=== PATIENT | male | born 1995 | race Hispanic/Latino ===

== ENCOUNTER 2018-09-02 21:43 | Emergency (ER) | payer OTHER ==
[2018-09-02 23:40] LABS: Barbiturates NEGATIVE (NEGATIVE); Benzodiazepines NEGATIVE (NEGATIVE); Cocaine NEGATIVE (NEGATIVE); METHAMPHETAM NEGATIVE (NEGATIVE); Methadone NEGATIVE (NEGATIVE); Opiates NEGATIVE (NEGATIVE); Phencyclidine NEGATIVE (NEGATIVE); THC Cannibis NEGATIVE (NEGATIVE)
--- NOTE | 2018-09-03 00:19 | EDPHYS ---
Physician Documentation [facility] [place] Name: Edgar Peterson Age: 22 yrs Sex: Male : 1995 Arrival Date: 09/02/2018 Time: 21:49 Bed 15 Private MD: ED Physician Carlos A Avina HPI: 09/03 02:03 This 22 yrs old Male presents to ER via Ambulatory with complaints of snw dehydration, General Weakness, Dizziness. 02:03 Onset: The symptoms/episode began/occurred suddenly, yesterday. Associated signs and snw symptoms: Pertinent positives: dizziness, nausea. Modifying factors: The patient symptoms are alleviated by nothing. It is unknown whether or not the patient has had similar symptoms in the past. It is unknown whether or not the patient has recently seen a physician. Historical: - Allergies: 09/02 22:06 No Known Allergies; tl2 - Home Meds: 22:06 None [Active]; tl2 - PMHx: 22:06 None; tl2 - PSHx: 22:06 None; tl2 - Immunization history:: Adult Immunizations up to date. - Social history:: Smoking status: Patient/guardian denies using tobacco. - Ebola Screening: : No symptoms or risks identified at this time. ROS: 09/03 02:03 Constitutional: Negative for fever, chills, and weight loss, Pt states he feels snw dehydrated, has been getting dizzy at work in the heat. Trying to drink lots of fluids but then feels nauseated Eyes: Negative for injury, pain, redness, and discharge, ENT: Negative for injury, pain, and discharge, Neck: Negative for injury, pain, and swelling, Cardiovascular: Negative for chest pain, palpitations, and edema, Respiratory: Negative for shortness of breath, cough, wheezing, and pleuritic chest pain, Abdomen/GI: Negative for abdominal pain, nausea, vomiting, diarrhea, and constipation, Back: Negative for injury and pain, : Negative for injury, bleeding, discharge, and swelling, MS/Extremity: Negative for injury and deformity, Skin: Negative for injury, rash, and discoloration, Neuro: Negative for headache, weakness, numbness, tingling, and seizure. Exam: 02:03 Constitutional: This is a well developed, well nourished patient who is awake, alert, snw and in no acute distress. Head/Face: Normocephalic, atraumatic. Eyes: Pupils equal round and reactive to light, extra-ocular motions intact. Lids and lashes normal. Conjunctiva and sclera are non-icteric and not injected. Cornea within normal limits. Periorbital areas with no swelling, redness, or edema. ENT: Nares patent. No nasal discharge, no septal abnormalities noted. Tympanic membranes are normal and external auditory canals are clear. Oropharynx with no redness, swelling, or masses, exudates, or evidence of obstruction, uvula midline. Mucous membranes moist. Neck: Trachea midline, no thyromegaly or masses palpated, and no cervical lymphadenopathy. Supple, full range of motion without nuchal rigidity, or vertebral point tenderness. No Meningismus. Chest/axilla: Normal chest wall appearance and motion. Nontender with no deformity. No lesions are appreciated. Cardiovascular: Regular rate and rhythm with a normal S1 and S2. No gallops, murmurs, or rubs. Normal PMI, no JVD. No pulse deficits. Respiratory: Lungs have equal breath sounds bilaterally, clear to auscultation and percussion. No rales, rhonchi or wheezes noted. No increased work of breathing, no retractions or nasal flaring. Abdomen/GI: Soft, non-tender, with normal bowel sounds. No distension or tympany. No guarding or rebound. No evidence of tenderness throughout. Back: No spinal tenderness. No costovertebral tenderness. Full range of motion. Skin: Warm, dry with normal turgor. Normal color with no rashes, no lesions, and no evidence of cellulitis. MS/ Extremity: Pulses equal, no cyanosis. Neurovascular intact. Full, normal range of motion. Neuro: Awake and alert, GCS 15, oriented to person, place, time, and situation. Cranial nerves II-XII grossly intact. Motor strength 5/5 in all extremities. Sensory grossly intact. Cerebellar exam normal. Normal gait. Psych: Awake, alert, with orientation to person, place and time. Behavior, mood, and affect are within normal limits. Vital Signs: 09/02 22:06 BP 142 / 68; Pulse 65; Resp 18; Temp 98.3(O); Pulse Ox 99% on R/A; Weight 79.38 kg; tl2 Height 6 ft. 0 in. (182.88 cm); Pain 0/10; 23:05 BP 133 / 65 Supine; Pulse 62; ea 23:06 BP 136 / 69 Sitting; Pulse 58; ea 23:07 BP 134 / 79 Standing; Pulse 62; ea 09/03 00:30 BP 119 / 57; Pulse 63; Resp 18; Temp 98.2; Pulse Ox 99% on R/A; ea 09/02 22:06 Body Mass Index 23.73 (79.38 kg, 182.88 cm) tl2 MDM: 09/02 22:51 Patient medically screened. snw 09/03 02:07 Data reviewed: vital signs, nurses notes. Data interpreted: Pulse oximetry: on room air snw is 99 %. Interpretation: normal. Counseling: I had a detailed discussion with the patient and/or guardian regarding: the historical points, exam findings, and any diagnostic results supporting the discharge/admit diagnosis, lab results, the need for outpatient follow up, for definitive care, to return to the emergency department if symptoms worsen or persist or if there are any questions or concerns that arise at home. Special discussion: Based on the history and exam findings, there is no indication for further emergent testing or inpatient evaluation. I discussed with the patient/guardian the need to see the primary care provider for further evaluation of the symptoms. 02:07 ED course: pt without ketonuria, no tachycardia. w 09/02 21:55 Order name: Urine Drug Screen; Complete Time: 23:41 snw 09/02 21:55 Order name: Urine Microscopic Only; Complete Time: 00:34 snw 09/02 21:55 Order name: Orthostatic Blood Pressure; Complete Time: 23:12 snw 09/02 21:55 Order name: Urine Dipstick-Ancillary (obtain specimen); Complete Time: 23:12 snw 09/02 23:07 Order name: Urine Dipstick--Ancillary (enter results) cm6 Administered Medications: No medications were administered Disposition: 06:54 Co-signature as Attending Physician, Carlos A Avina MD Available for consultation at ps1 all times . Disposition: 09/03/18 00:18 Discharged to Home. Impression: Heat exhaustion, unspecified. - Condition is Stable. - Discharge Instructions: Heat Exhaustion Information. - Work release form, Medication Reconciliation Form, Thank You Letter, Antibiotic Education, Prescription Opioid Use form. - Follow up: Private Physician; When: 2 - 3 days; Reason: Recheck today's complaints, Continuance of care, Re-evaluation by your physician. Follow up: Emergency Department; When: As needed; Reason: Worsening of condition. Signatures: Dispatcher [employer] EDMS Heidi Elvira, CLINICAL TRANSFORMATION SPECIALIST-C CLINICAL TRANSFORMATION SPECIALIST-Csnw Harika Hayes RN RN tl2 Nery Gayle RN RN ea Singer, Phillip, MD MD ps1 Corrections: (The following items were deleted from the chart) 00:41 00:18 09/03/2018 00:18 Discharged to Home. Impression: Heat exhaustion, unspecified. ea Condition is Stable. Forms are Medication Reconciliation Form, Thank You Letter, Antibiotic Education, Prescription Opioid Use. Follow up: Private Physician; When: 2 - 3 days; Reason: Recheck today's complaints, Continuance of care, Re-evaluation by your physician. Follow up: Emergency Department; When: As needed; Reason: Worsening of condition. snw
--- NOTE | 2018-09-03 00:19 | ER ---
Nurse's Notes [facility] Name: Edgar Peterson Age: 22 yrs Sex: Male : 1995 Arrival Date: 09/02/2018 Time: 21:49 Bed 15 Private MD: Diagnosis: Heat exhaustion, unspecified Presentation: 09/02 22:05 Presenting complaint: Patient states: Feeling weak and tired since yesterday at work. tl2 Pt works outside in the heat. Pt reports body aches. Transition of care: patient was not received from another setting of care. Onset of symptoms was September 01, 2018. Risk Assessment: Do you want to hurt yourself or someone else? Patient reports no desire to harm self or others. Initial Sepsis Screen: Does the patient meet any 2 criteria? No. Patient's initial sepsis screen is negative. Does the patient have a suspected source of infection? No. Patient's initial sepsis screen is negative. Care prior to arrival: None. 22:05 Method Of Arrival: Ambulatory tl2 22:05 Acuity: ESCOBAR 3 tl2 Historical: - Allergies: 22:06 No Known Allergies; tl2 - Home Meds: 22:06 None [Active]; tl2 - PMHx: 22:06 None; tl2 - PSHx: 22:06 None; tl2 - Immunization history:: Adult Immunizations up to date. - Social history:: Smoking status: Patient/guardian denies using tobacco. - Ebola Screening: : No symptoms or risks identified at this time. Screenin:06 Abuse screen: Denies threats or abuse. Nutritional screening: No deficits noted. tl2 Tuberculosis screening: No symptoms or risk factors identified. Fall Risk None identified. Assessment: 23:00 General: Appears in no apparent distress. Behavior is calm, cooperative, appropriate ea for age. General: pt reports generalized weakness . Pain: Denies pain. Neuro: Level of Consciousness is awake, alert, obeys commands, Oriented to person, place, time, situation. Cardiovascular: Patient's skin is warm and dry. Respiratory: Airway is patent Respiratory effort is even, unlabored, Respiratory pattern is regular, symmetrical. Derm: Skin is pink, warm \T\ dry. 09/03 00:30 Reassessment: Patient and/or family updated on plan of care and expected duration. Pain ea level reassessed. Patient is alert, oriented x 3, equal unlabored respirations, skin warm/dry/pink. Discharge instruction given to patient, verbalized the understanding of instruction. No s/s of pain or discomfort noted at this time. Pt left ED ambulatory, with significant other. Pt tolerating well. Vital Signs: 09/02 22:06 BP 142 / 68; Pulse 65; Resp 18; Temp 98.3(O); Pulse Ox 99% on R/A; Weight 79.38 kg; tl2 Height 6 ft. 0 in. (182.88 cm); Pain 0/10; 23:05 BP 133 / 65 Supine; Pulse 62; ea 23:06 BP 136 / 69 Sitting; Pulse 58; ea 23:07 BP 134 / 79 Standing; Pulse 62; ea 09/03 00:30 BP 119 / 57; Pulse 63; Resp 18; Temp 98.2; Pulse Ox 99% on R/A; ea 09/02 22:06 Body Mass Index 23.73 (79.38 kg, 182.88 cm) tl2 ED Course: 09/02 21:49 Patient arrived in ED. am2 22:06 Triage completed. tl2 22:06 Arm band placed on right wrist. tl2 22:47 [facility]C [facility] snw 22:47 Carlos A Avina MD is Attending Physician. snw 22:59 Nery Gayle, MARCO is Primary Nurse. ea 23:01 Patient has correct armband on for positive identification. Bed in low position. Call ea light in reach. Side rails up X 1. Adult w/ patient. 09/03 00:36 No provider procedures requiring assistance completed. Patient did not have IV access ea during this emergency room visit. Administered Medications: No medications were administered Outcome: 00:18 Discharge ordered by . snw 00:37 Discharged to home ambulatory, with significant other. ea 00:37 Condition: stable 00:37 Instructed on discharge instructions, follow up and referral plans. Demonstrated understanding of instructions, follow-up care. 00:41 Patient left the ED. ea Signatures: Elvira Gordon FNP-C ULTRASOUND TECH-Csnw Harika Hayes RN RN tl2 Alize Kaur am2 Nery Gayle RN RN ea
[2018-09-03 00:27] LABS: Urine Bacteria <20 /HPF (NONE SEEN); Urine Culture Reflex Order NOT NEEDED; Urine RBC NONE SEEN /HPF (NONE SEEN)
[2018-09-03 00:28] LABS: Urine Blood NEGATIVE (NEG); Urine Glucose NEGATIVE (NEG); Urine Protein NEGATIVE (NEG)
== END 2018-09-03 00:41 | disposition home or self-care (01) ==
LOC: ER 21:43
DX: T67.5XXA Heat exhaustion, unspecified, initial encounter (principal)
CPT/HCPCS: 80307; 81003; 81015; 99281